=== PATIENT | female | born 2005 | race Caucasian/White ===

== ENCOUNTER 2025-05-31 23:13 | Emergency (ER) | payer OTHER, SELFPAY ==
[2025-05-31 23:15] VITALS: BP 115/70
--- NOTE | 2025-06-01 | EDRN ---
bleeding. Pt states that it is one piercing that goes through tongue and had a ball on each side. Pt wants it removed.
--- NOTE | 2025-06-01 01:17 | ED.GENMED ---
History of Present Illness
General
Chief Complaint: Oral/Mouth Problem
Source: patient
Exam Limitations: none
Time Seen by Provider: 06/01/25 00:58
Nursing documentation reviewed up to this point in time: agreed with
History of Present Illness
History of Present Illness:
Note:
CHIEF COMPLAINT(S)
Tongue piercing with excessive bleeding and increased pain.
HISTORY OF PRESENT ILLNESS
The patient is a 20-year-old female no pm who presented with excessive bleeding from a recent tongue piercing. She reported that the piercing was done a few days ago and initially there was no concerning bleeding. However, approximately at 10:00 PM
last night, while in bed, she noticed a significant onset of bleeding from the piercing site without any precipitating event. The bleeding was profuse and did not subside with attempts to rinse the mouth. The patient described experiencing pain that
became more intense shortly before the presentation. She noted the bleeding as stubborn and relentless, with an increase in discomfort.
She has not had any fevers or chills.
No evidence of purulent drainage.
No dysphagia.
No chest pain, shortness of breath, abdominal pain, vomiting.
MEDICATIONS
No daily medications
REVIEW OF SYSTEMS
- Mouth: Excessive bleeding from the tongue piercing, increased pain.
PHYSICAL EXAM
General: Alert, no acute distress.
Skin: Warm, dry.
Head: Normocephalic, atraumatic.
Neck: Supple, trachea midline.
Eyes, Ears, Nose, Mouth, and Throat: Oral mucosa moist. No pharyngeal erythema
Tongue--snake bite piercing in place with no purulent drainage active bleeding noted
Cardiovascular: Normal peripheral perfusion, no edema.
Respiratory: Respirations are non-labored.
Gastrointestinal: Abdomen nondistended.
Back: Normal range of motion, normal alignment.
Musculoskeletal: Normal range of motion, normal strength.
Neurological: Alert and oriented to person, place, time, and situation. No focal neurological deficit observed.
Psychiatric: Cooperative, appropriate mood and affect.
PROBLEM LIST
Acute:
- Tongue piercing with excessive bleeding and increased pain.
PLAN
- Removal of the tongue piercing was discussed with the patient, anticipating the possibility of continued bleeding upon removal.
- Recommended commencement of antibiotics to prevent possible developing infection
- Discussed administering pain medications to alleviate the discomfort.
DIFFERENTIAL DIAGNOSIS
The Differential Diagnosis includes, in no particular order and is not limited to:
- Hemorrhage due to trauma from the piercing.
- Tongue infection.
- Hematoma.
- Coagulation disorder.
- Hyperemia or inflammation around the piercing site.
- Allergic reaction to the piercing material.
- Abscess formation.
- Thrombosed vessels.
- Inadvertent vascular injury.
- Local cellulitis.
Disposition:
SUMMARY OF ENCOUNTER
20-year-old female presented to the ER with concerns of bleeding from a tongue piercing placed a few days ago. The patient reported an increase in bleeding over the past few hours. On physical exam, no concerning signs of serious infection such as
purulent drainage were noted, though there was some mild irritation. The patient requested the removal of her piercing jewelry due to her concerns about developing an infection. The piercing was removed, and bleeding was managed and resolved with
the application of tranexamic acid (TXA) and pressure. However, to cover for potential infection, amoxicillin-clavulanate was started. The patient was counseled to monitor her symptoms and follow up with her primary care physician.
DISPOSITION
Stable for discharge.
ASSESSMENT
Tongue piercing with excessive bleeding; potential risk for infection.
EMERGENCY TREATMENTS ADMINISTERED
Bleeding resolved with tranexamic acid (TXA) and pressure.
PLAN
The patient was started on amoxicillin-clavulanate to prevent potential infection. Advised to monitor symptoms and follow up with primary care.
MEDICATION RECONCILIATION
Amoxicillin-clavulanate prescribed to prevent infection.
MEDICAL DECISION MAKING
- Complexity of Data Reviewed:
- Differential Diagnosis considered: Hemorrhage due to trauma from the piercing, tongue infection, hematoma, coagulation disorder, hyperemia or inflammation, allergic reaction to the piercing material, abscess formation, thrombosed vessels,
inadvertent vascular injury, local cellulitis.
DIAGNOSIS
Tongue piercing complication with bleeding - ICD-10 T85.69XA. Potential risk for infection.
Phy Exam
Physical Exam
Physical Exam:
see hpi
Sepsis
Sepsis Screening
Sepsis Assessment: Sepsis Ruled Out
Sepsis Screen
Sepsis Screen: Sepsis Ruled Out
Date: 06/01/25
Time: 12:44
Course
Orders/Labs/Results
Orders:
Orders
06/01/25 02:17
Tranexamic Acid 1,000 mg .ROUTE .STK-MED ONE
Vital Signs
Initial and Last Documented VS:
Initial Vital Signs
Pulse Resp BP Pulse Ox
96 18 115/70 98
05/31/25 23:15 05/31/25 23:15 05/31/25 23:15 05/31/25 23:15
Last Documented Vital Signs
Pulse Resp BP Pulse Ox
79 16 118/75 99
06/01/25 03:10 06/01/25 03:10 06/01/25 03:10 06/01/25 03:10
*Pulse Oximetry
SaO2: 98
Oxygen Mode of Delivery: Room air
Patient hypoxic: no
*Critical Care Note
Total Time (30-74mins, 75-104mins- exclusive of procedures): Not Applicable
ED Attending Note
-
Portions of this chart may have been created with voice recognition software.� Occasional wrong word or��sound alike� substitutions may have occurred due to the inherent limitations of voice recognition software.
Discharge Plan
Departure
Patient Disposition: Home (Routine Discharge)
Date of Disposition: 06/01/25
Time of Disposition: 03:03
Patient with high blood pressure during this ER visit?: Yes
Condition: Good
Discharge Problem:
Hemorrhage of tongue, Pierced tongue
Instructions: Tattoos and body piercings
Prescriptions:
New
amoxicillin-pot clavulanate 875-125 mg tablet
1 tab PO BID 7 Days Qty: 14 0RF
Referrals:
NONE,* [Family Provider, Internal Medicine]
Activity Restrictions/Additional Instructions:
Augmentin has been sent to your pharmacy. Please take 1 tablet twice daily for 7 days.
Should you have recurrence of bleeding, you can apply pressure for at least 15 to 30 minutes.
PLEASE RETURN TO ER SHOULD YOU DEVELOP INTRACTABLE NAUSEA OR VOMITING, PERSISTENT BLEEDING FEVERS OR CHILLS, PURULENT DRAINAGE FROM HIS HOME, TONGUE SWELLING, OR ANY OTHER SIGNS OR SYMPTOMS WORRISOME TO YOU.
Interventions
Interventions:
*Risk Screen - Suicide Last Done: 05/31/25 23:15
*General Assessment Last Done: 05/31/25 23:52
*Neglect/Abuse Screening Last Done: 05/31/25 23:15
*ED- Fall Risk Assessment Last Done: 05/31/25 23:52
*ED COVID-19 Vaccine History Last Done: 05/31/25 23:52
*ED Influenza Vaccine History Last Done: 05/31/25 23:52
*Nursing Disposition Last Done: 06/01/25 03:10
Discharge Date and Time
Discharge Date/Time: 06/01/25 03:10
Print Language: MACEDONIAN
[2025-06-01 03:10] VITALS: BP 118/75
== END 2025-06-01 03:10 | disposition home or self-care (01) ==
LOC: EMR 23:13
PROVIDERS: EMERGENCY PHYSICIAN Emergency Medicine
DX: K13.79 Other lesions of oral mucosa (principal)
CPT/HCPCS: 99282